=== PATIENT | female | born 1985 | race African-American/Black ===

== ENCOUNTER 2018-08-30 11:28 | Emergency (ER) | payer MEDICAID ==
[~2018-08-30] VITALS: Ht 167.6 cm; Wt 65.7 kg
[2018-08-30] MEDS ORDERED: ACETAMINOPHEN 325MG TABLET PO ONE (15:45)
[2018-08-30 17:28] VITALS: BP 92/63
== END 2018-08-30 17:28 | disposition home or self-care (01) ==
LOC: ER 11:47
DX: H66.92 Otitis media, unspecified, left ear (principal); B34.9 Viral infection, unspecified; F17.200 Nicotine dependence, unspecified, uncomplicated
CPT/HCPCS: 81025; 87804; 99283